=== PATIENT | female | born 1960 | race Caucasian/White ===

== ENCOUNTER 2019-03-06 15:30 | Inpatient (IN) ==
[2019-03-06] MEDS ORDERED: 0.9 % Sodium Chloride 1,000 ML IVC ONE (16:48)
[2019-03-06] MEDS ORDERED: Isovue-370 500 ML BOTTLE IVP ONE (16:50)
[2019-03-06] MEDS ORDERED: Metoclopramide 10 MG/2 ML VIAL IVP ONE (16:52)
--- NOTE | 2019-03-06 16:55 | Emergency Department Note ---
Disposition Clinical Impression: Pyelonephritis, Elevated troponin, Hypokalemia, Hypophosphatemia, Hypomagnesemia Sepsis Qualifiers: Sepsis type: sepsis due to unspecified organism Qualified Code(s): A41.9 - Sepsis, unspecified organism Disposition: Admitted As Inpatient Condition: Fair Time of Disposition: 17:50 General Adult HPI - General Chief complaint: ED Headache Stated complaint: Headache, NV, Low K/Mag Time Seen by Provider: 03/06/19 16:10 Source: patient, family Mode of arrival: ambulatory Limitations: no limitations Nursing Notes Reviewed: Yes Vital Signs Reviewed: Yes - History of Present Illness HPI Narrative: 58-year-old female persists for evaluation of a headache nausea vomiting and arm pain. Patient states symptoms started approximately 2 days ago. States it started with pain in her right arm.Progressed to involve her right neck. Patient does have history of cardiac disease. Patient reports nausea and vomiting. States she was seen at [facility] emergency department yesterday and was told she had low magnesium and low potassium. Patient also had a CT scan of the head obtained yesterday. Patient noted persistent nausea vomiting as well as lower abdominal pain over the past 2 days. Patient reports a fever that started today. Headache is noted be frontal. No change in vision. No focal neurologic deficit. Patient does have a prior history of hypertension, diabetes as well as coronary artery disease. Patient denies any cough. Patient denies any upper respiratory symptoms. Pain Scale: 9 - Related Data Home Medications Medication Instructions Recorded Confirmed Glimepiride [Amaryl] 2 mg PO DAILY 03/05/19 03/06/19 Levothyroxine [Synthroid] 150 mcg PO DAILY 03/05/19 03/06/19 Metformin HCl 1,000 mg PO BID 03/05/19 03/06/19 Metoprolol [Lopressor] 100 mg PO BID 03/05/19 03/06/19 Ranitidine HCl [Acid [employer]acker] 150 mg PO DAILY 03/05/19 03/06/19 Triamterene/Hydrochlorothiazid 1 PO DAILY 03/05/19 [Triamterene-Hctz 50-25 mg Cap] cloNIDine HCl [Clonidine HCl] 0.1 mg PO DAILY 03/05/19 03/06/19 Previous Rx's Medication Instructions Recorded Ondansetron ODT [Zofran ODT] 4 mg SL Q6HR PRN #15 tab.rapdis 03/05/19 Allergies Allergy/AdvReac Type Severity Reaction Status Date / Time codeine AdvReac Dizziness Verified 03/06/19 16:03 naproxen [From Naprosyn] AdvReac Hives Verified 03/06/19 16:03 All systems ED: reviewed and negative except as stated. 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 Absent: meningismus - Chest Chest inspection: Present: normal inspection, symmetric chest wall rise - Respiratory Respiratory exam: Present: normal lung sounds bilaterally. Absent: respiratory distress - Cardiovascular Cardiovascular exam: Present: regular rate, normal rhythm. Absent: systolic murmur - Abdominal Exam Abdominal exam: Present: soft, tenderness - Extremities Exam Extremities exam: Present: normal inspection. Absent: pedal edema - Back Exam Back exam: Present: normal inspection - Neurological Exam Neurological exam: Present: alert, oriented X3, CN II-XII intact - Expanded Neurological Exam Patient oriented to: Present: person, place, time Motor strength - LUE: 5/5 Motor strength - RUE: 5/5 Motor strength - LLE: 5/5 Motor strength - RLE: 5/5 Coma Scale Eye Opening: Spontaneous Coma Scale Motor Response: Obeys Commands Coma Scale Verbal Response: Oriented Coma Scale Total: 15 - Skin Skin exam: Present: warm, dry, intact, normal color Course Course Narrative: Patient presents with concerns of headache and nausea vomiting. Patient also has a history of coronary artery disease and presented with a concerning history of right arm pain and nausea vomiting. Patient also has bilateral lower abdominal pain. Complaining of a headache. With the patient complaining of a headache is pain above and below the diaphragm we will obtain a CT scan of the chest abdomen pelvis. Will also obtain urinalysis start appropriate fluid hydration and antiemetics and anti-inflammatories. Patient also get a flu swab. Records reviewed showed the patient was hypokalemic and hypomagnesemic. We will repeat labs today. Disposition anticipated for admission. At this point the patient has no signs of Meningismus and do not feel meningitis. Vital Signs Temperature 101.5 F H 03/06/19 16:04 Pulse Rate 97 03/06/19 16:04 Respiratory Rate 15 03/06/19 16:04 Blood Pressure 123/76 03/06/19 16:04 O2 Sat by Pulse Oximetry 94 03/06/19 16:04 Temperature 99.5 F 03/06/19 19:52 Pulse Rate 83 03/06/19 19:19 Respiratory Rate 22 03/06/19 19:19 Blood Pressure 124/44 03/06/19 19:19 O2 Sat by Pulse Oximetry 91 03/06/19 19:19 Oxygen Delivery Oxygen Delivery Room Air Medical Decision Making - [facility] Narrative Medical decision making narrative: 58-year-old female percent for complaint of headache nausea vomiting and arm pain. Patient did get an extensive evaluation. Patient did get a CT Jennifer chest abdomen pelvis given history of neuro complaints as well as pain above and below the diaphragm. Patient's CT results show pyelonephritis which is likely source of her fever. Patient's also been having some nausea vomiting with arm pain. Patient's troponin did come back elevated with no changes in EKG. Patient was given aspirin. Patient will try derangement possibly related to her nausea vomiting. Patient was started most appropriate antibiotics. Patient's lites lites were repleted. Patient will be admitted to the hospital service for continued evaluation and monitoring. - Lab Data Lab results reviewed: Yes I reviewed the patient's lab results. Result diagrams: 03/06/19 16:54 03/06/19 16:54 Lab Results 03/06/19 03/06/19 03/06/19 Range/Units 16:54 16:54 16:54 WBC 11.8 H (4.3-11.1) K/mcL RBC 3.08 L (3.82-4.97) M/mcL Hgb 9.5 L (11.5-15.4) g/dL Hct 28.3 L (35.3-44.9) % MCV 91.9 (83.0-100.0) fL MCH 30.8 (28.0-33.3) pg MCHC 33.6 (31.6-35.5) g/dL RDW 14.1 (11.5-14.5) % Plt Count 222 (140-400) K/mcL MPV 10.3 (9.4-12.4) fL Immature Gran % 0.7 (0-4) % Seg Neutrophils % 89.5 % Lymphocytes % 4.7 % Monocytes % 4.9 % Eosinophils % 0.0 % Basophils % 0.2 % Neutrophils # 10.5 H (1.6-8.9) K/mcL Lymphocytes # 0.6 (0.6-4.6) K/mcL Monocytes # 0.6 (0.0-1.3) K/mcL Eosinophils # 0.0 (0.0-0.6) K/mcL Basophils # 0.0 (0.0-0.2) K/mcL PT 14.4 H (9.4-12.1) Seconds INR 1.3 Sodium 136 (136-145) mEq/L Potassium 2.5 L* (3.5-5.1) mEq/L Chloride 94 L (98-107) mEq/L Carbon Dioxide 30 H (23-29) mEq/L BUN 13 (8-23) mg/dL Creatinine 0.82 (0.60-1.20) mg/dL Est GFR ( Amer) > 60 (> 60) Est GFR (Non-Af Amer) > 60 (> 60) BUN/Creatinine Ratio 16 (6-26) Glucose 137 H (70-105) mg/dL Calculated Osmolality 284 (280-300) Lactic Acid (0.5-2.2) mmol/L Calcium 9.0 (8.6-10.3) mg/dL Phosphorus 1.0 L* (2.7-4.5) mg/dL Magnesium 1.5 L (1.6-2.6) mg/dL Total Bilirubin 1.1 H (0.3-1.0) mg/dL Direct Bilirubin 0.4 H (0.0-0.2) mg/dL Indirect Bilirubin 0.7 (0.0-1.2) mg/dL AST 33 (13-39) Units/L ALT 21 (7-52) Units/L Alkaline Phosphatase 68 (34-104) Units/L Troponin I 0.07 H* (< 0.04) ng/mL B-Natriuretic Peptide (Less than 100) pg/mL Serum Total Protein 6.9 (6.4-8.9) g/dL Albumin 3.5 (3.5-5.7) g/dL Globulin 3.4 (2.4-3.5) g/dL Albumin/Globulin Ratio 1.0 L (1.1-2.2) Lipase 7 L (11-82) Units/L Ur Specimen Adequacy Urine Color (Yellow) Urine Clarity (Clear) Urine pH (5.0-8.0) pH Units Ur Specific [place] (1.010-1.025) Urine Protein (Neg-Trace) mg/dL Urine Glucose (UA) (Normal) mg/dL Urine Ketones (Negative) mg/dL Urine Blood (Negative) Urine Nitrite (Negative) Urine Bilirubin (Negative) Urine Urobilinogen (Normal) mg/dL Ur Leukocyte Esterase (Negative) Urine Microscopic RBC (0-3) per hpf Urine Microscopic WBC (0-3) per hpf Ur Squamous Epith Cells (None-Few) per lpf Urine Bacteria (None-Few) per hpf Hyaline Casts (None-Few) per lpf Ur Culture Indicated? (NO) 03/06/19 03/06/19 03/06/19 Range/Units 16:54 16:54 18:38 WBC (4.3-11.1) K/mcL RBC (3.82-4.97) M/mcL Hgb (11.5-15.4) g/dL Hct (35.3-44.9) % MCV (83.0-100.0) fL MCH (28.0-33.3) pg MCHC (31.6-35.5) g/dL RDW (11.5-14.5) % Plt Count (140-400) K/mcL MPV (9.4-12.4) fL Immature Gran % (0-4) % Seg Neutrophils % % Lymphocytes % % Monocytes % % Eosinophils % % Basophils % % Neutrophils # (1.6-8.9) K/mcL Lymphocytes # (0.6-4.6) K/mcL Monocytes # (0.0-1.3) K/mcL Eosinophils # (0.0-0.6) K/mcL Basophils # (0.0-0.2) K/mcL PT (9.4-12.1) Seconds INR Sodium (136-145) mEq/L Potassium (3.5-5.1) mEq/L Chloride (98-107) mEq/L Carbon Dioxide (23-29) mEq/L BUN (8-23) mg/dL Creatinine (0.60-1.20) mg/dL Est GFR ( Amer) (> 60) Est GFR (Non-Af Amer) (> 60) BUN/Creatinine Ratio (6-26) Glucose (70-105) mg/dL Calculated Osmolality (280-300) Lactic Acid 1.0 (0.5-2.2) mmol/L Calcium (8.6-10.3) mg/dL Phosphorus (2.7-4.5) mg/dL Magnesium (1.6-2.6) mg/dL Total Bilirubin (0.3-1.0) mg/dL Direct Bilirubin (0.0-0.2) mg/dL Indirect Bilirubin (0.0-1.2) mg/dL AST (13-39) Units/L ALT (7-52) Units/L Alkaline Phosphatase (34-104) Units/L Troponin I (< 0.04) ng/mL B-Natriuretic Peptide 213 H (Less than 100) pg/mL Serum Total Protein (6.4-8.9) g/dL Albumin (3.5-5.7) g/dL Globulin (2.4-3.5) g/dL Albumin/Globulin Ratio (1.1-2.2) Lipase (11-82) Units/L Ur Specimen Adequacy See below A Urine Color Dark Yellow (Yellow) Urine Clarity Cloudy A (Clear) Urine pH 6.0 (5.0-8.0) pH Units Ur Specific [place] 1.027 H (1.010-1.025) Urine Protein >=300 H (Neg-Trace) mg/dL Urine Glucose (UA) Normal (Normal) mg/dL Urine Ketones Trace H (Negative) mg/dL Urine Blood Moderate H (Negative) Urine Nitrite Positive A (Negative) Urine Bilirubin Small H (Negative) Urine Urobilinogen Normal (Normal) mg/dL Ur Leukocyte Esterase Small H (Negative) Urine Microscopic RBC 0-3 (0-3) per hpf Urine Microscopic WBC TNTC H (0-3) per hpf Ur Squamous Epith Cells Many H (None-Few) per lpf Urine Bacteria Moderate H (None-Few) per hpf Hyaline Casts None Seen (None-Few) per lpf Ur Culture Indicated? NO. A (NO) - Radiology Data Radiology results reviewed: Yes I reviewed the patient's radiology results. CT Dissection 03/06/19 16:50 IMPRESSION: No evidence for aneurysmal dilatation or dissection of the thoracic or abdominal aorta. No intramural hematoma. No central pulmonary embolism. Left perinephric inflammation and periureteral inflammation, concerning for pyelonephritis. Correlation with urinalysis suggested. D/ / Sarath Rojas MD / Sarath Rojas MD Interpreting Provider: Sarath Rojas MD - EKG Data EKG #1 EKG attestation: Yes I reviewed and interpreted this EKG. EKG shows normal: sinus rhythm Rate: normal Rhythm: NSR [place]/QRS: left axis deviation ST segment elevation in: aVR ST segment depression in: II Interpretation: no acute changes, nonspecific ST-T wave changes S.Theresa - Ronald Situation: Demographics Background: Presenting Complaint Assessment: Vital Signs, Course and respsone to treatment, Patient/Family Expectation Recommendation: Barrier(s) to disposition, Recommendation based on pending kylee dies, treatments, or consults S.BTeofilo Report Given to: Dr. Suki Cardenas Repor Time: 18:14
[2019-03-06 17:22] LABS: Basophils % 0.2 %; Hematocrit 28.3 % (35.3-44.9); Hemoglobin 9.5 g/dL (11.5-15.4); Immature Granulocytes % 0.7 % (0-4); Lymphocytes # 0.6 K/mcL (0.6-4.6); Lymphocytes % 4.7 %; Mean Corpuscular HGB Conc 33.6 g/dL (31.6-35.5); Mean Corpuscular Hemoglobin 30.8 pg (28.0-33.3); Mean Corpuscular Volume 91.9 fL (83.0-100.0); Mean Platelet Volume 10.3 fL (9.4-12.4); Monocytes # 0.6 K/mcL (0.0-1.3); Monocytes % 4.9 %; Neutrophils # 10.5 K/mcL (1.6-8.9); Platelet Count 222 K/mcL (140-400); Red Blood Count 3.08 M/mcL (3.82-4.97); Red Cell Distribution Width 14.1 % (11.5-14.5); Segmented Neutrophils % 89.5 %
[2019-03-06 17:29] LABS: INR 1.3; Prothrombin Time 14.4 Seconds (9.4-12.1)
[2019-03-06 17:46] LABS: Alanine Aminotransferase 21 Units/L (7-52); Albumin 3.5 g/dL (3.5-5.7); Alkaline Phosphatase 68 Units/L (34-104); Aspartate Amino Transferase 33 Units/L (13-39); BUN/Creatinine Ratio 16 (6-26); Bilirubin,Direct 0.4 mg/dL (0.0-0.2); Bilirubin,Indirect 0.7 mg/dL (0.0-1.2); Bilirubin,Total 1.1 mg/dL (0.3-1.0); Blood Urea Nitrogen 13 mg/dL (8-23); Carbon Dioxide 30 mEq/L (23-29); Chloride 94 mEq/L (98-107); Globulin 3.4 g/dL (2.4-3.5); Glucose 137 mg/dL (70-105); Lipase 7 Units/L (11-82); Magnesium 1.5 mg/dL (1.6-2.6); Osmolality,Calculated 284 (280-300); Potassium 2.5 mEq/L (3.5-5.1); Sodium 136 mEq/L (136-145); Total Protein 6.9 g/dL (6.4-8.9); Troponin I 0.07 ng/mL (< 0.04); eGFR For Non-African Americans > 60 (> 60)
[2019-03-06] MEDS ORDERED: cefTRIAXone 1,000 MG in Water for inj. (sterile) 20 ML 10 ML IVP ONE (17:46)
[2019-03-06] MEDS ORDERED: Potassium Chloride 40 MEQ, Lidocaine 1% 2 ML in D5% in Water 500 ML IVPB ONE (17:47)
[2019-03-06] MEDS ORDERED: Aspirin 325 MG TABLET PO ONE (17:47)
[2019-03-06] MEDS ORDERED: Potassium Phosphate 44 MEQ in 0.9 % Sodium Chloride 250 ML IVPB ONE (18:06)
--- NOTE | 2019-03-06 18:21 | Emergency Department Note ---
Disposition Clinical Impression: Pyelonephritis, Elevated troponin, Hypokalemia, Hypophosphatemia, Hypomagnesemia Sepsis Qualifiers: Sepsis type: sepsis due to unspecified organism Qualified Code(s): A41.9 - Sepsis, unspecified organism Disposition: Admitted As Inpatient Condition: Fair Referrals: Sweta Dias [Primary Care Provider] - Forms: ED Satisfaction Letter General Adult HPI - General Chief complaint: ED Headache Stated complaint: Headache, NV, Low K/Mag Time Seen by Provider: 03/06/19 16:10 Source: patient, family Mode of arrival: ambulatory Limitations: no limitations - History of Present Illness Pain Scale: 9 - Related Data Home Medications Medication Instructions Recorded Confirmed Glimepiride [Amaryl] 2 mg PO DAILY 03/05/19 03/06/19 Levothyroxine [Synthroid] 150 mcg PO DAILY 03/05/19 03/06/19 Metformin HCl 1,000 mg PO BID 03/05/19 03/06/19 Metoprolol [Lopressor] 100 mg PO BID 03/05/19 03/06/19 Ranitidine HCl [Acid [place] Stitcher] 150 mg PO DAILY 03/05/19 03/06/19 Triamterene/Hydrochlorothiazid 1 PO DAILY 03/05/19 [Triamterene-Hctz 50-25 mg Cap] cloNIDine HCl [Clonidine HCl] 0.1 mg PO DAILY 03/05/19 03/06/19 Previous Rx's Medication Instructions Recorded Ondansetron ODT [Zofran ODT] 4 mg SL Q6HR PRN #15 tab.rapdis 03/05/19 Allergies Allergy/AdvReac Type Severity Reaction Status Date / Time codeine AdvReac Dizziness Verified 03/06/19 16:03 naproxen [From Naprosyn] AdvReac Hives Verified 03/06/19 16:03 Constitutional: Reports: fever ENT ED: Denies: congestion Respiratory: Denies: cough, dyspnea Gastrointestinal: Reports: abdominal pain, nausea, vomiting Neurological: Reports: headache Past Medical History - Past Medical History Medical history: Reports: diabetes, hyperlipidemia, hypertension, myocardial infarction 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 - Social History Smoking Status: Never smoker Smokeless Tobacco Status: No Alcohol use: Reports: none Drug use: Reports: none Physical Exam - General Limitations: no limitations General appearance: alert, in no apparent distress Course Vital Signs Temperature 101.5 F H 03/06/19 16:04 Pulse Rate 97 03/06/19 16:04 Respiratory Rate 15 03/06/19 16:04 Blood Pressure 123/76 03/06/19 16:04 O2 Sat by Pulse Oximetry 94 03/06/19 16:04 Temperature 101.5 F H 03/06/19 16:04 Pulse Rate 90 03/06/19 18:07 Respiratory Rate 24 03/06/19 18:07 Blood Pressure 102/49 03/06/19 18:07 O2 Sat by Pulse Oximetry 96 03/06/19 18:07 Oxygen Delivery Oxygen Delivery Room Air Medical Decision Making - Lab Data Result diagrams: 03/06/19 16:54 03/06/19 16:54 Lab Results 03/06/19 03/06/19 03/06/19 Range/Units 16:54 16:54 16:54 WBC 11.8 H (4.3-11.1) K/mcL RBC 3.08 L (3.82-4.97) M/mcL Hgb 9.5 L (11.5-15.4) g/dL Hct 28.3 L (35.3-44.9) % MCV 91.9 (83.0-100.0) fL MCH 30.8 (28.0-33.3) pg MCHC 33.6 (31.6-35.5) g/dL RDW 14.1 (11.5-14.5) % Plt Count 222 (140-400) K/mcL MPV 10.3 (9.4-12.4) fL Immature Gran % 0.7 (0-4) % Seg Neutrophils % 89.5 % Lymphocytes % 4.7 % Monocytes % 4.9 % Eosinophils % 0.0 % Basophils % 0.2 % Neutrophils # 10.5 H (1.6-8.9) K/mcL Lymphocytes # 0.6 (0.6-4.6) K/mcL Monocytes # 0.6 (0.0-1.3) K/mcL Eosinophils # 0.0 (0.0-0.6) K/mcL Basophils # 0.0 (0.0-0.2) K/mcL PT 14.4 H (9.4-12.1) Seconds INR 1.3 Sodium 136 (136-145) mEq/L Potassium 2.5 L* (3.5-5.1) mEq/L Chloride 94 L (98-107) mEq/L Carbon Dioxide 30 H (23-29) mEq/L BUN 13 (8-23) mg/dL Creatinine 0.82 (0.60-1.20) mg/dL Est GFR ( Amer) > 60 (> 60) Est GFR (Non-Af Amer) > 60 (> 60) BUN/Creatinine Ratio 16 (6-26) Glucose 137 H (70-105) mg/dL Calculated Osmolality 284 (280-300) Lactic Acid (0.5-2.2) mmol/L Calcium 9.0 (8.6-10.3) mg/dL Phosphorus 1.0 L* (2.7-4.5) mg/dL Magnesium 1.5 L (1.6-2.6) mg/dL Total Bilirubin 1.1 H (0.3-1.0) mg/dL Direct Bilirubin 0.4 H (0.0-0.2) mg/dL Indirect Bilirubin 0.7 (0.0-1.2) mg/dL AST 33 (13-39) Units/L ALT 21 (7-52) Units/L Alkaline Phosphatase 68 (34-104) Units/L Troponin I 0.07 H* (< 0.04) ng/mL B-Natriuretic Peptide (Less than 100) pg/mL Serum Total Protein 6.9 (6.4-8.9) g/dL Albumin 3.5 (3.5-5.7) g/dL Globulin 3.4 (2.4-3.5) g/dL Albumin/Globulin Ratio 1.0 L (1.1-2.2) Lipase 7 L (11-82) Units/L 03/06/19 03/06/19 Range/Units 16:54 16:54 WBC (4.3-11.1) K/mcL RBC (3.82-4.97) M/mcL Hgb (11.5-15.4) g/dL Hct (35.3-44.9) % MCV (83.0-100.0) fL MCH (28.0-33.3) pg MCHC (31.6-35.5) g/dL RDW (11.5-14.5) % Plt Count (140-400) K/mcL MPV (9.4-12.4) fL Immature Gran % (0-4) % Seg Neutrophils % % Lymphocytes % % Monocytes % % Eosinophils % % Basophils % % Neutrophils # (1.6-8.9) K/mcL Lymphocytes # (0.6-4.6) K/mcL Monocytes # (0.0-1.3) K/mcL Eosinophils # (0.0-0.6) K/mcL Basophils # (0.0-0.2) K/mcL PT (9.4-12.1) Seconds INR Sodium (136-145) mEq/L Potassium (3.5-5.1) mEq/L Chloride (98-107) mEq/L Carbon Dioxide (23-29) mEq/L BUN (8-23) mg/dL Creatinine (0.60-1.20) mg/dL Est GFR ( Amer) (> 60) Est GFR (Non-Af Amer) (> 60) BUN/Creatinine Ratio (6-26) Glucose (70-105) mg/dL Calculated Osmolality (280-300) Lactic Acid 1.0 (0.5-2.2) mmol/L Calcium (8.6-10.3) mg/dL Phosphorus (2.7-4.5) mg/dL Magnesium (1.6-2.6) mg/dL Total Bilirubin (0.3-1.0) mg/dL Direct Bilirubin (0.0-0.2) mg/dL Indirect Bilirubin (0.0-1.2) mg/dL AST (13-39) Units/L ALT (7-52) Units/L Alkaline Phosphatase (34-104) Units/L Troponin I (< 0.04) ng/mL B-Natriuretic Peptide 213 H (Less than 100) pg/mL Serum Total Protein (6.4-8.9) g/dL Albumin (3.5-5.7) g/dL Globulin (2.4-3.5) g/dL Albumin/Globulin Ratio (1.1-2.2) Lipase (11-82) Units/L Attestation Statement - Attestation Attestation: I examined this patient and my medical decision-making was reviewed with the Resident Physician. I agree with the documented findings, disposition and treatment plan as described except to the extent set forth below. 58 year old female presents to the ED with complaints of fever and mulitple positive ROS, and she does meet SIRS criteria and it appears that it is pyelnephritis. WE have started her on rocephin and patient will be admitted to medicine. elevatf troponin liley secondary to the sepsis.
[2019-03-06 18:57] LABS: Bilirubin,Urine Small (Negative); Blood,Urine Moderate (Negative); Clarity,Urine Cloudy (Clear); Color,Urine Dark Yellow (Yellow); Glucose,Urine (UA) Normal (Normal); Ketones,Urine Trace mg/dL (Negative); Leukocyte Esterase,Urine Small (Negative); Nitrite,Urine Positive (Negative); Protein,Urine >=300 mg/dL (Neg-Trace); Specific Gravity,Urine 1.027 (1.010-1.025); Urobilinogen,Urine Normal (Normal)
[2019-03-06 18:59] LABS: Bacteria,Urine Moderate per hpf (None-Few); Hyaline Casts,Urine None Seen per lpf (None-Few); Squamous Epithelial Cell,Urine Many per lpf (None-Few); WBC,Urine TNTC per hpf (0-3)
[2019-03-06 19:03] LABS: RBC,Urine 0-3 per hpf (0-3)
[2019-03-06] MEDS ORDERED: *HR* Dextrose 50 % in Water (Syg) 50 ML SYRINGE IVP PRN (20:24)
[2019-03-06] MEDS ORDERED: D5% in Water 1,000 ML IVC PRN (20:24)
[2019-03-06] MEDS ORDERED: Dextrose Gel 15 GM/37.5 ML TUBE PO PRN ×2 (20:24)
--- NOTE | 2019-03-06 21:06 | Internal Med History&Physical ---
Date of Encounter: 03/07/19 Time of Encounter: 20:59 Internal Medicine - H&P: HPI Chief complaint: Left Arm Pain/Headache History of present illness: Ms. Rodriguez is a 58 year old female with past medical history of COPD, CHF, diabetes, hypertension and MN who presented to the ED with complaints of right arm pain, headache, nausea and vomiting. Patient reported to [facility] yesterday for similar complaints, was found to be hypokalemic and hypophosphatemic. Was given fluids and electrolyte repletion. Patient felt better and was subsequently discharged home. She returns today again with right arm pain radiating from her forearm to her right shoulder blade associated with headache, nausea and 4 episodes of nonbloody, bilious emesis. Patient again was found to be hypokalemic with a potassium of 2.5 and hypophosphatemic with a phosphorus level of 1.0. EKG showed no acute changes. CT scan was performed to rule out dissection which was negative but did show left perinephric and periureteral inflammation concerning for pyelonephritis. Patient does endorse back pain but no dysuria. CT scan of the head was performed yesterday at [facility] which showed no acute intracranial abnormality. Patient does not endorse chest pain per se but does endorse subjective fever and chills. On arrival patient was noted to have a fever of 101.5, was hemodynamically stable with a heart rate in the 90s. She does have a mild leukocytosis of 11.8 and anemia of 9.5. Patient was given 1 L fluid bolus and started on antibiotics. Blood and urine cultures were obtained. Admitting for possible pyelonephritis and ACS rule out. Past Med Surg Social Fam HX - Past Medical History Medical history: diabetes, hyperlipidemia, hypertension, myocardial infarction - Social History Smoking Status: Never smoker Smokeless Tobacco Status: No Alcohol use: none Drug use: none Internal Medicine - H&P: Meds Glimepiride [Amaryl] 2 mg PO DAILY 03/05/19 [History] Levothyroxine [Synthroid] 150 mcg PO DAILY 03/05/19 [History] Metformin HCl 1,000 mg PO BID 03/05/19 [History] Metoprolol [Lopressor] 100 mg PO BID 03/05/19 [History] Ondansetron ODT [Zofran ODT] 4 mg SL Q6HR PRN #15 tab.rapdis 03/05/19 [Rx] Ranitidine HCl [Acid Hat Blocking Machine Operator] 150 mg PO DAILY 03/05/19 [History] Triamterene/Hydrochlorothiazid [Triamterene-Hctz 50-25 mg Cap] 1 PO DAILY 03/05/19 [History] cloNIDine HCl [Clonidine HCl] 0.1 mg PO DAILY 03/05/19 [History] Allergy/AdvReac Type Severity Reaction Status Date / Time codeine AdvReac Dizziness Verified 03/06/19 16:03 naproxen [From Naprosyn] AdvReac Hives Verified 03/06/19 16:03 All Systems PM: A 10-system review of systems was performed and is negative for pertinent findings except as documented above in the HPI. - Constitutional Constitutional: no chills, no fever(s), no night sweats - EENT Eyes: no change in vision, no discharge, no pain, no photophobia Ears: no ear discharge, no ear pain, no tinnitus Nose, mouth and throat: no dysphagia, no nasal discharge, no neck pain, no sore throat - Cardiovascular Cardiovascular ROS IM: no chest pain, no diaphoresis, no dyspnea, no lightheadedness, no palpitations, no syncope - Respiratory Respiratory: no cough, no dyspnea, no wheezing, no excessive phlegm production - Gastrointestinal Gastrointestinal: no abdominal pain, no diarrhea, no hematemesis, no hematochezia, no melena, no nausea, no vomiting - Genitourinary Genitourinary: no change in urinary stream, no dysuria, no flank pain, no hematuria - Musculoskeletal Musculoskeletal ROS IM: no numbness, no tingling - Integumentary Integumentary IM: no rash, no unusual bruising - Neurological Neurological ROS: no confusion, no convulsions, no focal weakness, no numbness, no tingling, no tremor(s) - Hematologic/Lymphatic Hematologic/Lymphatic: no easy bruising - Constitutional Vitals: Temp Pulse Resp BP Pulse Ox 99.5 F 83 22 124/44 91 03/06/19 19:52 03/06/19 19:19 03/06/19 19:19 03/06/19 19:19 03/06/19 19:19 Exam: General: Alert and oriented 3 lying in bed in no acute distress 3 lying in bed in no acute distress Skin:Normal color, no rash, no lesions. HEENT:EOM, pupils equal, round and reactive. Cardiovascular:Normal S1 & S2, no rubs, 2/6 systolic murmur Lungs:Normal breath sounds, no wheezes or crackles. Abdomen:Soft, non-tender, no rigidity. Extremities:No deformity, no edema or tenderness, no joint swelling or clubbing. Neurological:Normal cognition and motor skills. Pulses:Carotid and radial pulses normal +2. Rest of the physical exam is non contributory Internal Med - H&P Results - Labs CBC & Chem 7: 03/07/19 01:32 03/07/19 01:32 Labs: Short CBC 03/06/19 Range/Units 16:54 WBC 11.8 H (4.3-11.1) K/mcL Hgb 9.5 L (11.5-15.4) g/dL Hct 28.3 L (35.3-44.9) % Plt Count 222 (140-400) K/mcL Neutrophils # 10.5 H (1.6-8.9) K/mcL BMP 03/06/19 16:54 Sodium 136 Potassium 2.5 L* Chloride 94 L Carbon Dioxide 30 H BUN 13 Creatinine 0.82 Glucose 137 H Calcium 9.0 Cardiac Enzymes 03/06/19 Range/Units 16:54 Troponin I 0.07 H* (< 0.04) ng/mL Liver Function 03/06/19 Range/Units 16:54 Total Bilirubin 1.1 H (0.3-1.0) mg/dL Direct Bilirubin 0.4 H (0.0-0.2) mg/dL AST 33 (13-39) Units/L ALT 21 (7-52) Units/L Alkaline Phosphatase 68 (34-104) Units/L Albumin 3.5 (3.5-5.7) g/dL Urine 03/06/19 Range/Units 18:38 Urine Color Dark Yellow (Yellow) Urine Clarity Cloudy A (Clear) Urine pH 6.0 (5.0-8.0) pH Units Ur Specific [place] 1.027 H (1.010-1.025) Urine Protein >=300 H (Neg-Trace) mg/dL Urine Glucose (UA) Normal (Normal) mg/dL - Impressions ITS Impressions CT Dissection 03/06/19 16:50 IMPRESSION: No evidence for aneurysmal dilatation or dissection of the thoracic or abdominal aorta. No intramural hematoma. No central pulmonary embolism. Left perinephric inflammation and periureteral inflammation, concerning for pyelonephritis. Correlation with urinalysis suggested. D/ / Sarath Rojas MD / Sarath Rojas MD Interpreting Provider: Sarath Rojas MD - Assessment and Plan (1) Elevated troponin Current Visit: Yes Status: Acute Assessment and plan: Patient presents with an elevated troponin of 0.07 in the setting of right arm pain radiating to her scapula. Patient reports when she had previous MN in 2008, she had left arm pain. No reports of chest pain at this time. EKG was reviewed by Dr. Jose L Akers and reports no acute changes. Patient does have a previous history of MN in 2008 at which time she reports having undergone a left heart catheter but states that lesions were non-stentable. Patient does report being under considerable amount of stress lately as she is caring for her [id number]. Patient received loading dose of aspirin in the ED. Suspect secondary to demand ischemia. Low suspicion for ACS at this time given her atypical presentation and unchanged EKG. -Telemetry -We will trend troponin: Continues to rise we will then consider starting patient on heparin drip. -We will obtain echocardiogram -We will consider cardiology consult based on findings (2) Hypokalemia Current Visit: Yes Status: Acute Assessment and plan: Hypokalemia likely secondary to GI losses. Patient reports a 4 episodes of nonbilious nonbloody emesis after discharge yesterday from [facility]. Found to have a potassium of 2.5 which is down from 2.6 yesterday. EKG were obtained and curbside with Dr. Jose L Akers who did not note any acute changes from previous EKGs. Patient reports no chest pain or palpitations at this time. -Telemetry -Replete potassium (3) Hypomagnesemia Current Visit: Yes Status: Acute Assessment and plan: Magnesium of 1.5. Patient received 2 g in the ED. We will recheck magnesium level (4) Hypophosphatemia Current Visit: Yes Status: Acute Assessment and plan: Hypophosphatemia of 1.0. Patient receiving potassium phosphate. We will recheck phosphorus level in the morning (5) Pyelonephritis Current Visit: Yes Status: Acute Assessment and plan: Patient presents with mild leukocytosis and UA suggestive of UTI in the setting of 3 day history of nausea and vomiting. Patient denies any dysuria per se however did have left-sided flank pain on physical examination. CT scan showed renetta-nephric and periureteral inflammation concerning for pyelonephritis. Patient received 1 dose of ceftriaxone in the ED. Blood and urine cultures have been ordered. -Continue antibiotics -Follow-up blood and urine cultures (6) Sepsis Current Visit: Yes Status: Acute Assessment and plan: Patient presents with nearly 3 out of 4 sirs criteria with fever, leukocytosis and tachycardia. Lactic acid was within normal limits On presentation patient was hemodynamically stable. She received 1 L fluid bolus in the ED and is currently on maintenance fluids. -Continue antibiotics and fluid support. -Follow-up blood and urine cultures. Qualifiers: Sepsis type: sepsis due to unspecified organism Qualified Code(s): A41.9 - Sepsis, unspecified organism (7) Arm pain Current Visit: No Status: Acute Assessment and plan: Pain appears her resolved. Concerning for atypical presentation of ACS. See malcolm naranjo. Qualifiers: Laterality: right Qualified Code(s): M79.601 - Pain in right arm (8) Headache Current Visit: No Status: Acute Assessment and plan: CT scan of the head was performed at [place] yesterday which showed no acute intracranial abnormalities. No focal deficits. Suspect migraine versus tension headache. We will give patient Excedrin for now. Qualifiers: Headache type: tension-type Qualified Code(s): G44.209 - Tension-type headache, unspecified, not intractable (9) Nausea and vomiting Current Visit: No Status: Acute Assessment and plan: Zofran as needed Qualifiers: Vomiting Intractability: unspecified Qualified Code(s): R11.2 - Nausea with vomiting, unspecified (10) Diabetes Current Visit: Yes Status: Acute Assessment and plan: Blood glucose checks. Sliding scale insulin. Diabetic diet. Qualifiers: Diabetes mellitus type: type 2 Diabetes mellitus complication status: without complication Qualified Code(s): E11.9 - Type 2 diabetes mellitus without complications (11) DVT prophylaxis Current Visit: Yes Status: Acute Assessment and plan: Subcutaneous heparin. - Time Spent With Patient Total time spent is greater than 50% in coordination of care (as documented) at patient's floor/unit and/or counseling patient:
[2019-03-06] MEDS: Insulin LISPRO 300 UNITS/3 ML VIAL SQ SCH (22:14)
[2019-03-06 22:26] LABS: BUN/Creatinine Ratio 15 (6-26); Blood Urea Nitrogen 12 mg/dL (8-23); Calcium 8.7 mg/dL (8.6-10.3); Carbon Dioxide 29 mEq/L (23-29); Chloride 98 mEq/L (98-107); Glucose 137 mg/dL (70-105); Osmolality,Calculated 286 (280-300); Potassium 2.8 mEq/L (3.5-5.1); Sodium 137 mEq/L (136-145); eGFR For Non-African Americans > 60 (> 60)
[2019-03-06] MEDS: *HR* Heparin 5,000 UNIT/ML VIAL SQ SCH (22:44)
[2019-03-06] MEDS: Ondansetron 4 MG/2 ML VIAL IVP SCH (23:49)
[2019-03-07] MEDS ORDERED: Metoclopramide 10 MG/2 ML VIAL IVP ONE (00:45)
[2019-03-07] MEDS ORDERED: Naloxone 0.4 MG/ML INJ IVP PRN (00:50)
[2019-03-07] MEDS ORDERED: 0.9 % Sodium Chloride 1,000 ML IV SCH (01:00)
[2019-03-07 01:49] LABS: Basophils % 0.3 %; Hematocrit 27.8 % (35.3-44.9); Immature Granulocytes % 0.6 % (0-4); Lymphocytes # 0.3 K/mcL (0.6-4.6); Mean Corpuscular HGB Conc 32.4 g/dL (31.6-35.5); Mean Corpuscular Hemoglobin 30.8 pg (28.0-33.3); Mean Corpuscular Volume 95.2 fL (83.0-100.0); Mean Platelet Volume 10.3 fL (9.4-12.4); Monocytes # 0.5 K/mcL (0.0-1.3); Monocytes % 5.2 %; Neutrophils # 9.3 K/mcL (1.6-8.9); Platelet Count 181 K/mcL (140-400); Red Blood Count 2.92 M/mcL (3.82-4.97); Red Cell Distribution Width 14.4 % (11.5-14.5); Segmented Neutrophils % 90.9 %
[2019-03-07 02:09] LABS: Alanine Aminotransferase 21 Units/L (7-52); Albumin 3.2 g/dL (3.5-5.7); Alkaline Phosphatase 65 Units/L (34-104); Aspartate Amino Transferase 36 Units/L (13-39); BUN/Creatinine Ratio 16 (6-26); Bilirubin,Total 0.9 mg/dL (0.3-1.0); Blood Urea Nitrogen 13 mg/dL (8-23); Calcium 8.4 mg/dL (8.6-10.3); Carbon Dioxide 27 mEq/L (23-29); Chloride 99 mEq/L (98-107); Globulin 3.1 g/dL (2.4-3.5); Glucose 176 mg/dL (70-105); Osmolality,Calculated 288 (280-300); Potassium 3.2 mEq/L (3.5-5.1); Sodium 137 mEq/L (136-145); Total Protein 6.3 g/dL (6.4-8.9); eGFR For Non-African Americans > 60 (> 60)
[2019-03-07 02:27] LABS: Platelet Estimate Normal (Normal); Reactive Lymphocytes Present (Not Present)
[2019-03-07] MEDS: *HR* Heparin 5,000 UNIT/ML VIAL SQ SCH ×3 (05:33→20:30)
[2019-03-07] MEDS: Ondansetron 4 MG/2 ML VIAL IVP SCH (05:44)
[2019-03-07 07:55] LABS: Acinetobacter baumannii by PCR Not Detected (Not Detect); Candida albicans by PCR Not Detected (Not Detect); Candida glabrata by PCR Not Detected (Not Detect); Candida krusei by PCR Not Detected (Not Detect); Candida parapsilosis by PCR Not Detected (Not Detect); Candida tropicalis by PCR Not Detected (Not Detect); Enterobacter cloacae Cmplx PCR Not Detected (Not Detect); Enterobacteriaceae by PCR DETECTED (Not Detect); Enterococcus by PCR Not Detected (Not Detect); Escherichia coli by PCR DETECTED (Not Detect); Klebsiella oxytoca by PCR Not Detected (Not Detect); Klebsiella pneumoniae by PCR Not Detected (Not Detect); Proteus by PCR Not Detected (Not Detect); Pseudomonas aeruginosa by PCR Not Detected (Not Detect); Serratia marcescens by PCR Not Detected (Not Detect); Staphylococcus aureus by PCR Not Detected (Not Detect); Staphylococcus by PCR Not Detected (Not Detect); Streptococcus agalactiae(B)PCR Not Detected (Not Detect); Streptococcus by PCR Not Detected (Not Detect); Streptococcus pneumoniae PCR Not Detected (Not Detect); Streptococcus pyogenes (A) PCR Not Detected (Not Detect); blaKPC Carbapenem-Resist Gene Not Detected (Not Detect)
[2019-03-07] MEDS: Insulin LISPRO 300 UNITS/3 ML VIAL SQ SCH ×3 (08:03→17:09)
[2019-03-07] MEDS: cefTRIAXone 2,000 MG in Water for inj. (sterile) 20 ML 20 ML IVP SCH (08:12)
[2019-03-07] MEDS: Metoclopramide 10 MG/2 ML VIAL IVP PRN ×2 (09:07→15:52)
[2019-03-07] MEDS ORDERED: Ondansetron 4 MG/2 ML VIAL IVP PRN (09:26)
--- NOTE | 2019-03-07 09:54 | Electrocardiograph Report ---
[address] [address] Test Date: 2019-03-06 Pat Name: Dalia Rodriguez Department: EXAM1 Room: 2A63 Gender: F Sailor: : 1960 Requested By: Karson Segura Order Number: [id number] Reading MD: Juan Larios Measurements Intervals [place] Rate: 91 P: 65 RI: 152 QRS: -32 QRSD: 126 T: 57 QT: 398 QTc: 490 Interpretive Statements Sinus rhythm Left bundle branch block Electronically Signed On 03-07-2019 9:52:04 EDT by Juan Larios
[2019-03-07] MEDS: Promethazine 12.5 MG in 0.9 % Sodium Chloride 50 ML IVPB PRN ×2 (11:38→18:50)
[2019-03-07] MEDS ORDERED: Acetaminophen 650 MG RECTAL SUPP RC PRN ×2 (11:51→23:30)
[2019-03-07] MEDS ORDERED: Acetaminophen 325 MG TABLET PO PRN (20:08)
[2019-03-07] MEDS ORDERED: cefTRIAXone 1,000 MG in Water for inj. (sterile) 20 ML 10 ML IVPB SCH (21:00)
--- NOTE | 2019-03-08 00:44 | Internal Med Progress Note ---
Hospitalist Progress Note - Encounter Date of Encounter: 03/07/19 Time of Encounter: 19:00 - Subjective Interval History: SUBJECTIVE: The patient continues to have nausea; vomited 2 times today (I saw her in the early afternoon). She continues to have left flank pain. She does not have any analgesics ordered. Denies chest pain and difficulty breathing. Her right arm pain subsided shortly after the admission to the emergency room. OBJECTIVE: Skin: Free of rash and discoloration. ENMT: Oral/pharyngeal mucosa is normal in appearance. Eyes: Sclera is white. There is no discharge from eyes. Respiratory: Normal breath sounds; no crackles or wheezes. CV: Heart is regular; no gallop or murmur. GI: Abdomen is soft and not tender. There is no palpable mass or visceromegaly. Neuro: There is no focal deficits. ADDITIONAL DATA: CTA dissection study from yesterday showed left perinephric inflammation and periureteral inflammation, concerning for pyelonephritis. Her urine shows changes typical for urinary tract infection. Urine culture is pending. Hemoglobin is 9.0 with a WBC of 10.2 thousand (11.8 thousand yesterday). Platelet count is normal. Potassium is 3.2; 2.8 yesterday. Creatinine needs 0.79. Troponin is 0.07 and 0.06. ASSESSMENT AND PLAN: Acute pyelonephritis. With nausea and vomiting. No urinary symptoms despite of changes In typical for UTI. The patient is on IV Rocephin. She gets IV fluids. She gets antiemetics. She was mildly septic at admission; subsided. Right arm pain at admission; subsided in the emergency room. Associated with mildly elevated troponins. They are leveled. She will need a stress test b efore going home. Probably, in a couple days. Hypokalemia, hypomagnesemia and hypophosphatemia. Secondary to nausea and vomiting she had for a couple days at home. She is on potassium chloride by mouth. She got 2 g of IV magnesium sulfate. BMP, magnesium and phosphorus will be checked tomorrow. - Exam Vitals: Temp Pulse Resp BP Pulse Ox 99.9 F H 82 16 129/78 93 03/08/19 00:20 03/08/19 00:20 03/08/19 00:20 03/08/19 00:20 03/08/19 00:20 Exam: xx - Assessment and Plan (1) Pyelonephritis Current Visit: Yes Status: Acute (2) Sepsis Current Visit: Yes Status: Acute (3) Nausea and vomiting Current Visit: No Status: Acute (4) Arm pain Current Visit: No Status: Acute (5) Elevated troponin Current Visit: Yes Status: Acute (6) Hypokalemia Current Visit: Yes Status: Acute (7) Hypomagnesemia Current Visit: Yes Status: Acute (8) Hypophosphatemia Current Visit: Yes Status: Acute (9) Diabetes Current Visit: Yes Status: Acute - Time Spent with Patient Total time spent is greater than 50% in coordination of care (as documented) at patient's floor/unit and/or counseling patient: 25 - 35 minutes Plan of Care Discussed with: patient Internal Medicine: Result - Labs CBC & Chem 7: 03/07/19 01:32 03/07/19 01:32 Labs: Short CBC 03/07/19 Range/Units 01:32 WBC 10.2 (4.3-11.1) K/mcL Hgb 9.0 L (11.5-15.4) g/dL Hct 27.8 L (35.3-44.9) % Plt Count 181 (140-400) K/mcL Neutrophils # 9.3 H (1.6-8.9) K/mcL BMP 03/07/19 01:32 Sodium 137 Potassium 3.2 L Chloride 99 Carbon Dioxide 27 BUN 13 Creatinine 0.79 Glucose 176 H Calcium 8.4 L Cardiac Enzymes 03/07/19 03/07/19 Range/Units 01:32 08:30 Troponin I 0.06 H* 0.04 H* (< 0.04) ng/mL Liver Function 03/07/19 Range/Units 01:32 Total Bilirubin 0.9 (0.3-1.0) mg/dL AST 36 (13-39) Units/L ALT 21 (7-52) Units/L Alkaline Phosphatase 65 (34-104) Units/L Albumin 3.2 L (3.5-5.7) g/dL - ABG Interpretation ABG results: PT/INR, D-dimer PT 14.4 Seconds (9.4-12.1) H 03/06/19 16:54 - Impressions Impressions Echocardiogram 03/07/19 12:35 Impressions: LVEF 60%. Moderate left ventricular diastolic dysfunction. Normal right ventricular structure and function. Mild aortic regurgitation. Mild tricuspid regurgitation. Mild-moderate pulmonary hypertension. Left Ventricular Wall Motion: Rest Echo Findings All wall segments showed normal motion. Findings: Study Quality * Technically adequate exam. ECG Findings * Sinus rhythm with BBB. Left Ventricle * LVEF 60%. * Normal LV chamber size. * Moderate left ventricular diastolic dysfunction. * Atypical septal motion consistent with bundle branch block. Right Ventricle * Normal right ventricular structure and function. Left Atrium * Normal left atrial size. Right Atrium * Normal right atrial size. Interatrial Septum * No evidence of PFO by color Doppler. Aortic Valve * Aortic valve not well visualized. * Mild aortic regurgitation. * Mild aortic stenosis. Mitral Valve * Trace mitral regurgitation. * No mitral stenosis. * Normal mitral valve structure. Tricuspid Valve * Mild tricuspid regurgitation. * Mild-moderate pulmonary hypertension. * Estimated RVSP is 56 mmHg. * Estimated RA pressure is 10 mmHg. Pulmonic Valve * Pulmonic valve not well visualized. Aorta * Normally sized aortic root. Pericardium * The pericardium appears normal. IVC * The IVC is dilated. Pulmonary Artery * Normal visualized portions of the main pulmonary artery. Consult Discharge Plan - Plan Referrals: Sweta Dias [Primary Care Provider] - (2) Sepsis Qualifiers: Sepsis type: sepsis due to unspecified organism Qualified Code(s): A41.9 - Sepsis, unspecified organism (3) Nausea and vomiting Qualifiers: Vomiting Intractability: unspecified Qualified Code(s): R11.2 - Nausea with vomiting, unspecified (4) Arm pain Qualifiers: Laterality: right Qualified Code(s): M79.601 - Pain in right arm (9) Diabetes Qualifiers: Diabetes mellitus type: type 2 Diabetes mellitus complication status: without complication Qualified Code(s): E11.9 - Type 2 diabetes mellitus without compl ications
[2019-03-08] MEDS: Acetaminophen/Aspirin/Caffeine TABLET PO PRN (01:58)
[2019-03-08 04:17] LABS: Basophils % 0.3 %; Hemoglobin 8.4 g/dL (11.5-15.4); Immature Granulocytes % 0.8 % (0-4); Lymphocytes # 0.6 K/mcL (0.6-4.6); Lymphocytes % 8.6 %; Mean Corpuscular HGB Conc 32.3 g/dL (31.6-35.5); Mean Corpuscular Hemoglobin 30.5 pg (28.0-33.3); Mean Corpuscular Volume 94.5 fL (83.0-100.0); Mean Platelet Volume 11.3 fL (9.4-12.4); Monocytes # 0.5 K/mcL (0.0-1.3); Monocytes % 8.3 %; Neutrophils # 5.3 K/mcL (1.6-8.9); Platelet Count 154 K/mcL (140-400); Red Blood Count 2.75 M/mcL (3.82-4.97); Red Cell Distribution Width 14.4 % (11.5-14.5)
[2019-03-08 04:37] LABS: BUN/Creatinine Ratio 22 (6-26); Blood Urea Nitrogen 15 mg/dL (8-23); Calcium 8.5 mg/dL (8.6-10.3); Carbon Dioxide 27 mEq/L (23-29); Chloride 103 mEq/L (98-107); Glucose 123 mg/dL (70-105); Osmolality,Calculated 288 (280-300); Potassium 3.1 mEq/L (3.5-5.1); Sodium 138 mEq/L (136-145); eGFR For Non-African Americans > 60 (> 60)
[2019-03-08 04:38] LABS: Magnesium 1.9 mg/dL (1.6-2.6); Phosphorous 1.6 mg/dL (2.7-4.5)
[2019-03-08] MEDS: *HR* Heparin 5,000 UNIT/ML VIAL SQ SCH ×3 (06:14→21:39)
[2019-03-08] MEDS: cefTRIAXone 2,000 MG in Water for inj. (sterile) 20 ML 20 ML IVP SCH (07:34)
[2019-03-08] MEDS: Aspirin Enteric Coated 81 MG Tablet PO SCH (07:34)
[2019-03-08] MEDS: Insulin LISPRO 300 UNITS/3 ML VIAL SQ SCH ×3 (08:01→16:56)
[2019-03-08 09:40] LABS: % Iron Saturation 4 % (15-50); Iron 11 mcg/dL (50-170); Transferrin 203 mg/dL (203-362)
[2019-03-08] MEDS ORDERED: Potassium Phosphate 44 MEQ in 0.9 % Sodium Chloride 250 ML IVPB ONE (09:57)
[2019-03-08 10:26] LABS: Folate > 22.3 ng/mL (3.0-16.0); Vitamin B12 596 pg/mL (250-1100)
[2019-03-08 10:27] LABS: Ferritin > 1500 ng/mL (10-120)
[2019-03-08] MEDS ORDERED: Sodium Ferric Gluconat/Sucrose 250 MG in 0.9 % Sodium Chloride 100 ML IVPB ONE (11:57)
[2019-03-08] MEDS ORDERED: Acetaminophen 325 MG TABLET PO PRN (12:00)
--- NOTE | 2019-03-08 12:01 | Internal Med Progress Note ---
Hospitalist Progress Note - Encounter Date of Encounter: 03/08/19 Time of Encounter: 10:00 - Subjective Interval History: Patient is awake and alert. She feels somewhat better compared to yesterday but continues to have fever. MAXIMUM TEMPERATURE was 100.5 earlier this morning. Denies any flank pain. No dysuria. No nausea or vomiting. Patient has been nothing by mouth. No chest pain at this time. Has not had right arm pain again. - Exam Vitals: Temp Pulse Resp BP Pulse Ox 99.0 F 82 18 132/80 90 03/08/19 11:44 03/08/19 11:44 03/08/19 11:44 03/08/19 11:44 03/08/19 11:44 Exam: General: Patient is alert, mild distress, oriented x 3 ENT: Mucous membranes moist Respiratory: Good respiratory effort. Normal breath sounds. No wheezing or crackles. Cardiovascular: Regular rate and rhythm. s1 and s2 normal No clicks, rubs, gallops, or murmurs. No pedal edema Abdomen: Abdomen is soft, nontender. Bowel sounds are present Musculoskeletal: Spontaneously moving all extremities Skin: warm, dry, intact. Neuro: Alert oriented x 3 normal cranial nerves, no focal deficits - Assessment and Plan (1) Sepsis Current Visit: Yes Status: Acute Assessment and Plan: Sepsis due to acute pyelonephritis from Escherichia coli. Improving. One set of blood cultures positive for Escherichia coli. Awaiting final culture results. Will repeat blood cultures today to look for resolution. Continue ceftriaxone. (2) Pyelonephritis Current Visit: Yes Status: Acute Assessment and Plan: Acute pyelonephritis resulting in sepsis. Patient continues to have fever although intensity and frequency improving. Continue current antibiotics while we await culture results to finalize. (3) Nausea and vomiting Current Visit: Yes Status: Acute Assessment and Plan: Improved. Due to acute pyelonephritis. Start patient on diet at this time. (4) Arm pain Current Visit: No Status: Acute Assessment and Plan: Uncertain etiology. Now improved. Troponins have trended down. Consider stress test as outpatient after acute illness subsides. (5) Hypokalemia Current Visit: Yes Status: Acute Assessment and Plan: Potassium 3.1 today. We will replete. Patient also has low phosphorus. We will prescribe K-Phos for supplementation. (6) Hypomagnesemia Current Visit: Yes Status: Acute Assessment and Plan: Improved. (7) Elevated troponin Current Visit: Yes Status: Acute (8) Hypophosphatemia Current Visit: Yes Status: Acute (9) Diabetes Current Visit: Yes Status: Chronic Assessment and Plan: Will place patient on ADA diet. Monitor blood sugars. Sliding scale insulin. DVT Prophylaxis: Continue subcutaneous heparin - Time Spent with Patient Total time spent is greater than 50% in coordination of care (as documented) at patient's floor/unit and/or counseling patient: Internal Medicine: Result - Labs CBC & Chem 7: 03/08/19 03:27 03/08/19 03:27 Labs: Short CBC 03/08/19 Range/Units 03:27 WBC 6.4 (4.3-11.1) K/mcL Hgb 8.4 L (11.5-15.4) g/dL Hct 26.0 L (35.3-44.9) % Plt Count 154 (140-400) K/mcL Neutrophils # 5.3 (1.6-8.9) K/mcL BMP 03/08/19 03:27 Sodium 138 Potassium 3.1 L Chloride 103 Carbon Dioxide 27 BUN 15 Creatinine 0.67 Glucose 123 H Calcium 8.5 L - ABG Interpretation ABG results: PT/INR, D-dimer PT 14.4 Seconds (9.4-12.1) H 03/06/19 16:54 - Impressions Impressions Echocardiogram 03/07/19 12:35 Impressions: LVEF 60%. Moderate left ventricular diastolic dysfunction. Normal right ventricular structure and function. Mild aortic regurgitation. Mild tricuspid regurgitation. Mild-moderate pulmonary hypertension. Left Ventricular Wall Motion: Rest Echo Findings All wall segments showed normal motion. Findings: Study Quality * Technically adequate exam. ECG Findings * Sinus rhythm with BBB. Left Ventricle * LVEF 60%. * Normal LV chamber size. * Moderate left ventricular diastolic dysfunction. * Atypical septal motion consistent with bundle branch block. Right Ventricle * Normal right ventricular structure and function. Left Atrium * Normal left atrial size. Right Atrium * Normal right atrial size. Interatrial Septum * No evidence of PFO by color Doppler. Aortic Valve * Aortic valve not well visualized. * Mild aortic regurgitation. * Mild aortic stenosis. Mitral Valve * Trace mitral regurgitation. * No mitral stenosis. * Normal mitral valve structure. Tricuspid Valve * Mild tricuspid regurgitation. * Mild-moderate pulmonary hypertension. * Estimated RVSP is 56 mmHg. * Estimated RA pressure is 10 mmHg. Pulmonic Valve * Pulmonic valve not well visualized. Aorta * Normally sized aortic root. Pericardium * The pericardium appears normal. IVC * The IVC is dilated. Pulmonary Artery * Normal visualized portions of the main pulmonary artery. Consult Discharge Plan - Plan Referrals: Sweta Dias [Primary Care Provider] - (1) Sepsis Qualifiers: Sepsis type: Escherichia coli Qualified Code(s): A41.51 - Sepsis due to Escherichia coli [E. coli] (3) Nausea and vomiting Qualifiers: Vomiting Intractability: unspecified Qualified Code(s): R11.2 - Nausea with vomiting, unspecified (4) Arm pain Qualifiers: Laterality: right Qualified Code(s): M79.601 - Pain in right arm (9) Diabetes Qualifiers: Diabetes mellitus type: type 2 Diabetes mellitus complication status: without complication Qualified Code(s): E11.9 - Type 2 diabetes mellitus without complications
[2019-03-08] MEDS: Metoclopramide 10 MG/2 ML VIAL IVP PRN (13:11)
[2019-03-08] MEDS ORDERED: *HR* Promethazine 25 MG/ML VIAL IVP PRN (15:50)
[2019-03-08] MEDS ORDERED: *HR* Promethazine 25 MG/ML VIAL ONE (15:52)
[2019-03-08] MEDS: Promethazine 12.5 MG in 0.9 % Sodium Chloride 50 ML IVPB PRN (15:53)
[2019-03-09 06:24] LABS: Basophils % 0.3 %; Hematocrit 26.3 % (35.3-44.9); Hemoglobin 8.5 g/dL (11.5-15.4); Immature Granulocytes % 0.6 % (0-4); Lymphocytes # 0.8 K/mcL (0.6-4.6); Lymphocytes % 12.9 %; Mean Corpuscular HGB Conc 32.3 g/dL (31.6-35.5); Mean Corpuscular Hemoglobin 30.8 pg (28.0-33.3); Mean Corpuscular Volume 95.3 fL (83.0-100.0); Mean Platelet Volume 11.6 fL (9.4-12.4); Monocytes # 0.6 K/mcL (0.0-1.3); Monocytes % 9.3 %; Neutrophils # 4.8 K/mcL (1.6-8.9); Platelet Count 174 K/mcL (140-400); Red Blood Count 2.76 M/mcL (3.82-4.97); Red Cell Distribution Width 14.6 % (11.5-14.5); Segmented Neutrophils % 76.9 %
[2019-03-09] MEDS: *HR* Heparin 5,000 UNIT/ML VIAL SQ SCH ×2 (06:34→13:36)
[2019-03-09 06:50] LABS: BUN/Creatinine Ratio 25 (6-26); Blood Urea Nitrogen 14 mg/dL (8-23); Calcium 8.8 mg/dL (8.6-10.3); Carbon Dioxide 24 mEq/L (23-29); Chloride 104 mEq/L (98-107); Glucose 154 mg/dL (70-105); Osmolality,Calculated 288 (280-300); Sodium 137 mEq/L (136-145); eGFR For Non-African Americans > 60 (> 60)
[2019-03-09] MEDS: Insulin LISPRO 300 UNITS/3 ML VIAL SQ SCH ×2 (08:02→11:55)
[2019-03-09] MEDS: cefTRIAXone 2,000 MG in Water for inj. (sterile) 20 ML 20 ML IVP SCH (08:05)
[2019-03-09] MEDS: Aspirin Enteric Coated 81 MG Tablet PO SCH (08:05)
[2019-03-09] MEDS: Acetaminophen/Aspirin/Caffeine TABLET PO PRN (10:03)
--- NOTE | 2019-03-09 14:16 | Discharge Summary ---
- NOTES TO OUTPATIENT PROVIDER Notes to Outpatient Provider: Patient with a history of COPD, CHF, diabetes, hypertension and VT who was hospitalized here with sepsis related to acute pyelonephritis.she has been having fevers and was having nausea and vomiting initially. She was treated with IV antibiotics. Her symptoms have since im proved. She also had initially complained of right arm pain. Her troponins were slightly elevated at 0.07 initially and has since trended down. She would benefit from a stress test which can be done as outpatient after her sepsis resolves. 1 set of blood cultures is positive for Escherichia coli. Repeat cultures have been negative. Patient is no longer febrile. She is feeling much better and is clinically stable to be discharged home on oral antibiotics to complete a 14 day treatment course. Patient did have a 2-D echocardiogram done here which showed EF of 60% with moderate left frontal and diastolic dysfunction. We will arrange for outpatient follow-up with cardiology. Orders not resulted at time of discharge: Pending orders 03/06/19 16:54 Culture,Blood [] Stat 03/08/19 09:09 Culture,Blood [] Routine Date of Encounter: 03/09/19 Time of Encounter: 10:45 - Discharge Diagnosis (1) Sepsis Priority: Primary Status: Acute Qualifiers: Sepsis type: Escherichia coli Qualified Code(s): A41.51 - Sepsis due to Escherichia coli [E. coli] (2) Pyelonephritis Priority: Secondary Status: Acute (3) Nausea and vomiting Priority: Secondary Status: Acute Qualifiers: Vomiting Intractability: unspecified Qualified Code(s): R11.2 - Nausea with vomiting, unspecified (4) Arm pain Priority: Secondary Status: Acute Qualifiers: Laterality: right Qualified Code(s): M79.601 - Pain in right arm (5) Hypokalemia Priority: Secondary Status: Acute (6) Hypomagnesemia Priority: Secondary Status: Acute (7) Elevated troponin Priority: Secondary Status: Acute (8) Hypophosphatemia Priority: Secondary Status: Acute (9) Diabetes Priority: Secondary Status: Chronic Qualifiers: Diabetes mellitus type: type 2 Diabetes mellitus complication status: without complication Qualified Code(s): E11.9 - Type 2 diabetes mellitus without complications Hospital course: Ms. Rodriguez is a 58 year old female Patient with a history of COPD, CHF, diabetes, hypertension and VT who was hospitalized here with sepsis related to acute pyelonephritis.she has been having fevers and was having nausea and vomiting initially. She was treated with IV antibiotics. Her symptoms have since improved. She also had initially complained of right arm pain. Her troponins were slightly elevated at 0.07 initially and has since trended down. She would benefit from a stress test which can be done as outpatient after her sepsis resolves. 1 set of blood cultures is positive for Escherichia coli. Repeat cultures have been negative. Patient is no longer febrile. She is feeling much better and is clinically stable to be discharged home on oral antibiotics to complete a 14 day treatment course. Patient did have a 2-D echocardiogram done here which showed EF of 60% with moderate left frontal and diastolic dysfunction. We will arrange for outpatient follow-up with cardiology. Discharge discussed with: patient - Time Spent with Patient Total time spent providing and/or coordinating discharge services: Time spent: Greater than 30 minutes (35 min) - Discharge Medications Prescriptions: New Potassium Chloride [K-Tab ER] 20 meq PO BID #30 tablet.er Aspirin Enteric Coated [Aspirin EC] 81 mg PO DAILY #30 tablet. Simvastatin [Zocor] 20 mg PO QPM #30 tablet Cefdinir [Omnicef] 300 mg PO BID #20 capsule Lactobacillus Acidophilus [Acidophilus] 1 each PO BID #20 tablet Continue cloNIDine HCl [CloNIDine HCl] 0.1 mg PO BID hydroCHLOROthiazide [Hydrochlorothiazide] 25 mg PO DAILY Metoprolol Succinate [Toprol Xl] 100 mg PO BID Hinckley-3/Dha/Epa/Fish Oil [Fish Oil 1,000 mg Softgel] 1 cap PO BID Metformin HCl 1,000 mg PO BID Ranitidine HCl [Acid Logging Assistant] 150 mg PO DAILY Levothyroxine [Synthroid] 150 mcg PO DAILY Glimepiride [Amaryl] 2 mg PO DAILY Home Medications: Glimepiride [Amaryl] 2 mg PO DAILY 03/05/19 [History] Levothyroxine [Synthroid] 150 mcg PO DAILY 03/05/19 [History] Metformin HCl 1,000 mg PO BID 03/05/19 [History] Ranitidine HCl [Acid Logging Assistant] 150 mg PO DAILY 03/05/19 [History] Metoprolol Succinate [Toprol Xl] 100 mg PO BID 03/07/19 [History] Hinckley-3/Dha/Epa/Fish Oil [Fish Oil 1,000 mg Softgel] 1 cap PO BID 03/07/19 [History] cloNIDine HCl [CloNIDine HCl] 0.1 mg PO BID 03/07/19 [History] hydroCHLOROthiazide [Hydrochlorothiazide] 25 mg PO DAILY 03/07/19 [History] Aspirin Enteric Coated [Aspirin EC] 81 mg PO DAILY #30 tablet. 03/09/19 [Rx] Cefdinir [Omnicef] 300 mg PO BID #20 capsule 03/09/19 [Rx] Lactobacillus Acidophilus [Acidophilus] 1 each PO BID #20 tablet 03/09/19 [Rx] Potassium Chloride [K-Tab ER] 20 meq PO BID #30 tablet.er 03/09/19 [Rx] Simvastatin [Zocor] 20 mg PO QPM #30 tablet 03/09/19 [Rx] Allergies/Adverse Reactions: Allergy/AdvReac Type Severity Reaction Status Date / Time codeine AdvReac Dizziness Verified 03/07/19 17:35 naproxen [From Naprosyn] AdvReac Hives Verified 03/07/19 17:35 Date of admission: 03/07/19 00:50 Primary care physician: Sweta Dias Discharging clinician: Abebe Navarrete Anticipated date of discharge: 03/09/19 - Constitutional Vitals: Temp Pulse Resp BP Pulse Ox 98.2 F 83 22 145/75 92 03/09/19 11:24 03/09/19 11:24 03/09/19 11:24 03/09/19 11:24 03/09/19 11:24 General appearance: Present: cooperative, A&O X 3, pleasant, answers questions appropriately Exam: . - Respiratory Respiratory exam: Present: CTAB. Absent: accessory muscle use, rales, rhonchi, wheezes - Cardiovascular Cardiovascular exam: Present: RRR, +S1, +S2. Absent: diastolic murmur, gallop, rubs, systolic murmur - GI/Abdominal GI/Abdominal exam: Present: normal bowel sounds, soft, no peritoneal signs. Absent: distended, tenderness - Patient Status Disposition: Home, Self-Care Condition: Good Functional capacity at discharge: independent ambulation Overall status at discharge: patient is back to baseline - Discharge Instructions Follow Up With: Sweta Dias [Primary Care Provider] - (in 1-2 weeks) Jose L Akers DO [Partnered Physician] - (in 1-2 weeks) - Diet and Activity Activity: as per physical therapy Diet: low fat, low cholesterol, low salt diet
[2019-03-09 15:54] VITALS: BP 160/84
== END 2019-03-09 16:36 | disposition home or self-care (01) | DRG 872 ==
LOC: 2ANU 15:30 → EMEROOARM 15:30 → 2ANU 20:19 → SUATTDRO 03-07 00:50
PROVIDERS: ADMIT Hospitalist; ATTEND Internal Medicine